=== PATIENT | female | born 1955 | race Caucasian/White ===

== ENCOUNTER 2017-02-02 11:34 | Day surgery (SDC) | payer OTHER ==
[~2017-02-02 11:34] MED LIST: Clindamycin Phosphate 900 MG in Dextrose 5% in Water 100 ML IV ONE; Iopamidol 612 MG/ML 50 ML SDV ONE; Lactated Ringers 1,000 ML IV SCH; Lidocaine 1%/Sod Bicarbonate in NS 8.4% 1 ML Syringe PRN; Midazolam 1 MG/ML 2 ML SDV ONE; Propofol 200 MG/20 ML SDV ONE; Rocuronium 50 MG/5 ML Vial ONE; Sodium Chloride 0.9% 10 ML Syringe FLUSH PRN; Sodium Chloride 0.9% 50 ML SDV ONE; fentaNYL 250 MCG/5 ML SDV ONE
[2017-02-02] MEDS ORDERED: diphenhydrAMINE 50 MG/ML SDV IVPUSH PRN (11:48)
[2017-02-02] MEDS ORDERED: fentaNYL 100 MCG/2 ML SDV IVPUSH PRN (11:48)
[2017-02-02] MEDS ORDERED: Ondansetron 4 MG/2 ML SDV IVPUSH PRN (11:48)
--- NOTE | 2017-02-02 11:52 | PCM.PREANE ---
Preanesthetic Assessment - Anesthesia/Transfusion/Family Hx Anesthesia History: Prior Anesthesia Without Reaction Family History of Anesthesia Reaction: No Transfusion History: No Prior Transfusion(s) Intubation History: Unknown - Review of Systems General: No Symptoms Pulmonary: No Symptoms Cardiovascular: No Symptoms Gastrointestinal: No symptoms Neurological: Headache (migraines ) Other: Reports: Thyroid Problems (hypothyroid on medication ) - Physical Assessment NPO Status Date: 02/02/17 NPO Status Time: 20:30 Pulse: 75 O2 Sat by Pulse Oximetry: 94 Respiratory Rate: 16 Blood Pressure: 124/74 Temperature: 36.2 C Height: 1.68 m Weight: 108.862 kg ASA Class: 3 Mental Status: Alert & Oriented x3 Airway Class: Mallampati = 1 Dentition: Reports: Normal Dentition Thyro-Mental Finger Breadths: 3 Mouth Opening Finger Breadths: 6 ROM/Head Extension: Full Lungs: Clear to auscultation, Normal respiratory effort Cardiovascular: Regular Rate, Regular Rhythm - Allergies Allergies/Adverse Reactions: Allergies Allergy/AdvReac Type Severity Reaction Status Date / Time Penicillins Allergy Cannot Verified 02/01/17 15:08 Remember - Blood Blood Available: No - Anesthesia Plan Pre-Op Medication Ordered: None - Acknowledgements Anesthesia Type Planned: General Anesthesia Pt an Appropriate Candidate for the Planned Anesthesia: Yes Alternatives and Risks of Anesthesia Discussed w Pt/Guardian: Yes Pt/Guardian Understands and Agrees with Anesthesia Plan: Yes PreAnesthesia Questionnaire Cardiovascular History: Reports: None, Other (See Below) (at [place] history of EGK within 6 months, with prologned [place] interval 0.238, will obtain record or order EKG) Respiratory History: Reports: None Gastrointestinal History: Reports: GERD, Other (See Below) Other Gastrointestinal History: LUQ pain, nausea/vomiting, rectal bleeding, post op nausea/vomiting Genitourinary History: Reports: None INSULATION HELPER History: Reports: None Musculoskeletal History: Reports: Arthritis, Other (See Below) Other Musculoskeletal History: R foot fracture Neurological History: Reports: Migraines Psychiatric History: Reports: Anxiety, Depression, Other (See Below) Other Psychiatric History: dissociative disorder, cognitive disorder, insomnia, depressive neurosis Endocrine/Metabolic History: Reports: Hypothyroidism Hematologic History: Reports: None Immunologic History: Reports: None Oncologic (Cancer) History: Reports: Basal Cell Carcinoma Dermatologic History: Reports: None - Past Surgical History Head Surgeries/Procedures: Reports: None HEENT Surgical History: Reports: Tonsillectomy GI Surgical History: Reports: Appendectomy, Colonoscopy, Other (See Below) Other GI Surgeries/Procedures: abdominoplasty Oncologic Surgical History: Reports: Biopsy of Breast - HOME MEDS Home Medications: Home Meds ARIPiprazole [Abilify] 10 mg PO DAILY 02/01/17 [History] Baclofen [Baclofen] 10 mg PO TID PRN 02/01/17 [History] Cetirizine [ZyrTEC] 10 mg PO DAILY 02/01/17 [History] Desvenlafaxine [Pristiq] 100 mg PO DAILY 02/01/17 [History] Dextroamphetamine/Amphetamine [Adderall 10 mg Tablet] 10 mg PO TID 02/01/17 [ History] FA/Lycopene/Lut/MV,Ca,Iron,Min [Centrum] 1 tab PO DAILY 02/01/17 [History] Fluticasone Propionate [Flonase] 1 spray NASBOTH DAILY 02/01/17 [History] Levothyroxine Sodium [Levothyroxine Sodium] 50 mcg PO DAILY 02/01/17 [History] Montelukast [Singulair] 10 mg PO DAILY 02/01/17 [History] Nabumetone [Nabumetone] 500 mg PO BID 02/01/17 [History] Omeprazole [Omeprazole] 40 mg PO DAILY 02/01/17 [History] Rosuvastatin [Crestor] 10 mg PO DAILY 02/01/17 [History] Timolol Maleate [Blocadren] 10 mg PO BID 02/01/17 [History] Tretinoin [Retin-A] 1 applic TOP ASDIRECTED 02/01/17 [History] ZOLMitriptan [Zomig] 2.5 mg PO DAILY PRN 02/01/17 [History] clonazePAM [Clonazepam] 0.5 mg PO BID 02/01/17 [History] traZODone HCl [Trazodone HCl] 100 mg PO BEDTIME 02/01/17 [History] - CURRENT (IN HOUSE) MEDS Current Meds: Current Medications Lactated Ringer's (Ringers, Lactated) 1,000 mls @ 125 mls/hr IV ASDIRECTED ANABELLE Stop: 02/02/17 23:00 Clindamycin Phosphate 900 mg/ (Dextrose/Water) 106 mls @ 212 mls/hr IV ONETIME ONE Stop: 02/02/17 11:49 Lidocaine/Sodium Bicarbonate (Buffered Lidocaine 1% In Ns 8.4%) 0.25 ml .XX ONETIME PRN PRN Reason: Prior to IV Start Stop: 02/02/17 18:00 Sodium Chloride (Saline Flush) 10 ml FLUSH ASDIRECTED PRN PRN Reason: Keep Vein Open Stop: 02/02/17 18:00 Discontinued Medications Bupivacaine HCl/Epinephrine Bitart (Marcaine 0.5%/Epinephrine 1:200,000) Confirm Administered Dose 50 ml .ROUTE .STK-MED ONE Stop: 02/02/17 11:33 Fentanyl (Sublimaze) Confirm Administered Dose 250 mcg .ROUTE .STK-MED ONE Stop: 02/02/17 11:17 Iopamidol (Isovue-300 (61%)) Confirm Administered Dose 50 ml .ROUTE .STK-MED ONE Stop: 02/02/17 11:33 Lidocaine/Epinephrine (Xylocaine 1% With Epinephrine 1:100,000) Confirm Administered Dose 20 ml .ROUTE .STK-MED ONE Stop: 02/02/17 11:33 Midazolam HCl (Versed 1 Mg/Ml) Confirm Administered Dose 2 mg .ROUTE .STK-MED ONE Stop: 02/02/17 11:14 Midazolam HCl (Versed 1 Mg/Ml) Confirm Administered Dose 2 mg .ROUTE .STK-MED ONE Stop: 02/02/17 11:17 Propofol (Diprivan 20 Ml) Confirm Administered Dose 200 mg .ROUTE .STK-MED ONE Stop: 02/02/17 11:12 Rocuronium Dubois (Zemuron) Confirm Administered Dose 50 mg .ROUTE .STK-MED ONE Stop: 02/02/17 11:24 Sodium Chloride (Normal Saline) Confirm Administered Dose 100 ml .ROUTE .STK- MED ONE Stop: 02/02/17 11:33
[2017-02-02] MEDS ORDERED: HYDROmorphone 0.5 MG/0.5 ML Syringe IVPUSH PRN (12:15)
[2017-02-02] MEDS: Bupivacaine 0.5%/EPINEPHrine 1:200,000 50 ML MDV ONE ×2 (12:39→12:51)
[2017-02-02] MEDS: Lidocaine 1% with EPINEPHrine 1:100,000 20 ML MDV ONE ×2 (12:39→12:52)
[2017-02-02] MEDS ORDERED: Ketorolac 30 MG/ML SDV ONE ×2 (12:44→14:24)
[2017-02-02] MEDS ORDERED: Dexamethasone 4 MG/ML 5 ML MDV ONE (12:44)
[2017-02-02] MEDS ORDERED: Ondansetron 4 MG/2 ML SDV ONE (12:44)
[2017-02-02] MEDS ORDERED: Phenylephrine/Normal Saline 100 MCG/ML 10 ML Syringe ONE (12:47)
[2017-02-02] MEDS ORDERED: ePHEDrine/Normal Saline 25 MG/5 ML Syringe ONE (12:49)
[2017-02-02] MEDS ORDERED: Ketamine 500 mg/10 ML MDV ONE (13:31)
[2017-02-02] MEDS ORDERED: fentaNYL 100 MCG/2 ML SDV ONE (13:56)
[2017-02-02] MEDS ORDERED: Neostigmine Methylsulfate 1 MG/ML 5 ML Syringe ONE (14:11)
--- NOTE | 2017-02-02 14:23 | PCM.OPNOTE ---
- General Post-Op/Procedure Note Date of Surgery/Procedure: 02/02/17 Operative Procedure(s): Laparoscopic cholecystectomy with incidental primary umbilical hernia repair Pre Op Diagnosis: Symptomatic cholelithiasis Post-Op Diagnosis: Cholelithiasis with acute cholecystitis Anesthesia Technique: General ET tube, Local (40 mL) Primary Surgeon: Moraima Helm Anesthesia Provider: Aubrie Mari Pathology: Gallbladder Fluid Replacement, Intraop: 1,300 (mL crystalloid) EBL in mLs: 30 Complications: None Condition: Good Free Text/Narrative:: INDICATION FOR PROCEDURE: The patient is a 61-year-old woman who had been referred to me by Dr. Miya Hendricks for evaluation for symptomatic cholelithiasis. She had multiple gallstones on ultrasound present within the gallbladder. She had also had a history of elevated alkaline phosphatase and a very mildly mildly elevated direct bilirubin of 0.5. I discussed with the patient performing a laparoscopic cholecystectomy with interoperative cholangiogram as well as incidental umbilical hernia repair and associated risks of the procedure. The patient found these risks acceptable and agreed to proceed. DESCRIPTION OF PROCEDURE: The patient was taken to the operating room and placed in the supine position. Sequential compressive devices were placed on the bilateral lower extremities. After induction of general endotracheal anesthesia, the abdomen was prepped and draped in the usual sterile fashion. Preoperative antibiotics had been administered as per protocol. A supraumbilical curvilinear incision was made using a scalpel. The patient had a prior abdominoplasty and the previous tyrell-umbilical scar was utilized to enter the abdomen. This was deepened down through the subcutaneous tissues to the anterior abdominal wall fascia which was elevated and incised. At first, the patient's umbilical hernia was not immediately apparent. The abdomen was bluntly entered using a hemostat. An 0 Vicryl stay suture was placed. A Barrett cannula was introduced into the abdomen and the abdomen was insufflated to 15 mm of mercury. The abdomen was then surveyed. The liver did appear somewhat fatty but was otherwise unremarkable. The visualized portions of the stomach, small intestine and large intestine were unremarkable. The patient was placed in steep Trendelenburg, I was not able to visualize her reproductive organs. The pelvis otherwise appeared unremarkable. There was no evidence of inguinal hernia. Attention was turned then to the patient's gallbladder. The dome of the gallbladder was unremarkable, however upon retracting the gallbladder cephalad, dense scar tissue was noted on the body. Two additional 5 mm trocars had been placed under direct visualization after first injecting local anesthetic, one in the epigastrium and one in the right subcostal margin. The gallbladder fundus was elevated, and the triangle of Calot was dissected. I did place a fundal retraction suture of 0 silk to assist in visualization. The critical view of safety was obtained however this was quite difficult due to scarring and inflammation around the infundibulum. The appearance of the gallbladder was consistent with acute cholecystitis. The cystic artery was coursing anterior to the cystic duct. It was triply clipped and transected to allow better visualization of the cystic duct. The cystic duct was extensively dilated and it was seen going into the common bile duct. The common bile duct did not appear dilated. There were numerous small stones within the cystic duct. I milked as many of the stones up into the infundibulum of the gallbladder as possible, however it became obvious that there would be no way to transect the duct and apply clips. I did attempt to obtain a cholangiogram using utilizing a Mcghee cholangiocatheter, however due to the multiple small stones I was not able to accomplish this. I did not want to perform a ductotomy and spill the large amount of small stones into the abdomen and the cystic duct itself was quite short and I did not have enough room to use another securing device. I ultimately decided to transect the cystic duct using a vascular load stapler. This was completed and there was a crushed gallstone present in staple line. An additional Endoloop 2-0 PDS was used placed to further secure the cystic duct stump. This was for additional security only, there was no obvious bile leak from the staple line. The gallbladder was then removed off of the liver bed using electrocautery and placed into an EndoCatch bag. The abdomen was irrigated and suctioned until the effluent was clear. The liver bed was reinspected for hemostasis. The 5 mm trocars were removed with no evidence of bleeding. The Barrett cannula and gallbladder within the EndoCatch bag were then removed and the abdomen desufflated. The patient's fascial incision was closed using an 0 Vicryl [id number] suture. Upon closing the fascial incision, I was finally able to identify the patient's umbilical hernia. The umbilical skin was taken off of the umbilical stalk in the 1 cm hernia defect was reapproximated using 2 interrupted figure-of -eight 0 Vicryl sutures. The umbilical skin was then tacked down to the fascia using an 0 Vicryl suture. Additional local anesthetic was injected tyrell- incisionally. The incisions were then closed using subcuticular 4-0 Monocryl suture. Dermabond was placed over the patient's skin incisions. The patient was then awakened from anesthesia, extubated, and transferred to the recovery room in stable condition having tolerated the procedure well. Sponge and instrument counts were reported as correct at the end of the case. POSTOPERATIVE PLAN: I discussed my intraoperative findings with the patient's after the procedure. I was concerned that she could have stones present within her ducts due to the dilated appearance of the cystic duct as well as the numerous small stones are present within her gallbladder and the cystic duct itself, including the staple line. I range for the patient to have an MRCP today after she is awakened from anesthesia. Based on the findings from the MRCP, we will make appropriate arrangements. Prescriptions for Percocet 5/325mg were given in addition to Zofran ODT and Senna-S. They will follow up in 2 weeks for a post- operative check. They are not lift over 20 pounds for the next 4 weeks. They are to call the office with any questions or concerns. ADDENDUM: I personally reviewed the patient's MRCP images prior to her discharge. She had no evidence of retained stones. Her was updated.
[2017-02-02] MEDS ORDERED: Flumazenil 0.1 MG/ML 5 ML MDV ONE (14:47)
--- NOTE | 2017-02-02 14:55 | PCM.POSTAN ---
POST ANESTHESIA ASSESSMENT - MENTAL STATUS Mental Status: other (drowsy) - VITAL SIGNS Pulse Rate: 73 SaO2: 95 Resp Rate: 13 Blood Pressure: 150/84 Temperature: 96.5 C - RESPIRATORY Respiratory Status: respiratory rate WNL, airway patent, O2 saturation stable, supplemental oxygen - CARDIOVASCULAR CV Status: pulse rate WNL, elevated blood pressure - GASTROINTESTINAL GI Status: no symptoms - PAIN Pain Score: 0 - POST OP HYDRATION Hydration Status: adequate & stable
[2017-02-02] MEDS ORDERED: Acetaminophen/oxyCODONE 325-5 MG Tab PO ONE (15:45)
--- NOTE | 2017-02-02 16:44 | MR ---
MRI abdomen Technique: Various sequences were obtained to the upper abdomen. MR cholangiogram study was also performed. Comparison: No previous abdominal imaging is available. Findings: Common hepatic and common bile duct measure within normal limits. Common bile duct measures about 6 mm in crown hepatic duct measures about 4 mm. No filling defects are seen to indicate retained stone. Intrahepatic ducts that are seen show no filling defects to indicate retained stone. Gallbladder not seen presumably due to previous cholecystectomy. Please correlate. Noncontrast appearance of the liver, spleen and pancreas are within normal limits. Kidneys show no hydronephrosis. No discrete mass is seen within the kidneys. Aorta shows no aneurysmal dilatation. No retroperitoneal adenopathy is seen. Impression: 1. Normal size of the CBD and CHD. No filling defects are seen within the visualized biliary tree to indicate retained stone. Gallbladder not seen presumably from previous cholecystectomy. 2. Other portions of the noncontrast MR abdomen exam appear within normal limits. Diagnostic code #1
[2017-02-02 17:00] VITALS: BP 117/65
--- NOTE | 2017-02-02 19:23 | PCM48HPAN ---
Post Anesthesia Note - EVALUATION WITHIN 48HRS OF ANESTHETIC Vital Signs in Normal Range: Yes Patient Participated in Evaluation: Yes Respiratory Function Stable: Yes Airway Patent: Yes Cardiovascular Function Stable: Yes Hydration Status Stable: Yes Pain Control Satisfactory: Yes Nausea and Vomiting Control Satisfactory: Yes Mental Status Recovered: Yes
== END 2017-02-02 17:00 | disposition home or self-care (01) ==
LOC: JD.SDS 11:34
PROVIDERS: ATTEND Surgery
PROC: 0FT44ZZ Resection of Gallbladder, Percutaneous Endoscopic Approach (ICD-10-PCS; principal; 2017-02-02)
PROC: 0WQF0ZZ Repair Abdominal Wall, Open Approach (ICD-10-PCS; 2017-02-02)
DX: K80.10 Calculus of gallbladder with chronic cholecystitis without obstruction (principal); K42.9 Umbilical hernia without obstruction or gangrene; E03.8 Other specified hypothyroidism; C44.91 Basal cell carcinoma of skin, unspecified; M19.90 Unspecified osteoarthritis, unspecified site; E78.5 Hyperlipidemia, unspecified
CPT/HCPCS: 47562; 49585; 74181; 88304; A9270; J1100; J1885; J2250; J2405; J2710; J3010; J7050; J7120; 00790; J2704; J3490; Q9967

== ENCOUNTER 2020-06-01 06:29 | Day surgery (SDC) | payer OTHER ==
[~2020-06-01 06:29] MED LIST changes: -Clindamycin Phosphate 900 MG in Dextrose 5% in Water 100 ML IV ONE; -Iopamidol 612 MG/ML 50 ML SDV ONE; +Lidocaine 1%/Sod Bicarbonate in NS 8.4% 1 ML Syringe IDERM PRN; -Lidocaine 1%/Sod Bicarbonate in NS 8.4% 1 ML Syringe PRN; -Midazolam 1 MG/ML 2 ML SDV ONE; -Propofol 200 MG/20 ML SDV ONE; -Rocuronium 50 MG/5 ML Vial ONE; -Sodium Chloride 0.9% 50 ML SDV ONE; -fentaNYL 250 MCG/5 ML SDV ONE
[2020-06-01] MEDS ORDERED: Lidocaine 1% 4 ML ONE (07:22)
[2020-06-01] MEDS ORDERED: Propofol 200 MG/20 ML SDV ONE ×2 (07:22→08:09)
[2020-06-01] MEDS ORDERED: fentaNYL 100 MCG/2 ML SDV ONE (07:23)
--- NOTE | 2020-06-01 07:38 | PCM.PREANE ---
Preanesthetic Assessment - Anesthesia/Transfusion/Family Hx Anesthesia History: Prior Anesthesia Without Reaction Family History of Anesthesia Reaction: No Transfusion History: No Prior Transfusion(s) Intubation History: Unknown - Review of Systems General: No Symptoms Pulmonary: No Symptoms (COPD-asthma), Cough Cardiovascular: No Symptoms (elevated cholesterol), Dyspnea on Exertion Gastrointestinal: No Symptoms (GERD/gastritis-controlled) Neurological: No Symptoms, Dizziness (syncope noted after surgeries in the past.), Headache (migraines) Other: Reports: Easy Bruising, Liver Problems (fatty liver noted), Thyroid Problems (Hypothyroid), Sinus Problem (seasonal allergies), Depression, Anxiety - Physical Assessment NPO Status Date: 05/30/20 NPO Status Time: 18:00 Vital Signs: Last Vital Signs Temp 36.1 C 06/01/20 07:00 Pulse 79 06/01/20 07:00 Resp 20 06/01/20 07:00 BP 132/60 06/01/20 07:00 Pulse Ox 95 06/01/20 07:00 Height: 1.68 m Weight: 114 kg ASA Class: 3 Mental Status: Alert & Oriented x3 Airway Class: Mallampati = 2 Dentition: Reports: Normal Dentition, Implants (cap noted upper front), Caries Thyro-Mental Finger Breadths: 3 Mouth Opening Finger Breadths: 3 ROM/Head Extension: Full Lungs: Clear to Auscultation, Normal Respiratory Effort Cardiovascular: Regular Rate, Regular Rhythm, No Murmurs - Lab Values: Laboratory Last Values SARS-CoV-2 (PCR) Not detected (NOT DETECT) 05/28/20 09:51 - Allergies Allergies/Adverse Reactions: Allergies Allergy/AdvReac Type Severity Reaction Status Date / Time Penicillins Allergy Rash Verified 02/02/17 12:21 - Anesthesia Plan Pre-Op Medication Ordered: Beta Soraya Beta Soraya: Propranolol Med Last Dose Date: 06/01/20 Med Last Dose Time: 06:00 - Acknowledgements Anesthesia Type Planned: MAC Pt an Appropriate Candidate for the Planned Anesthesia: Yes Alternatives and Risks of Anesthesia Discussed w Pt/Guardian: Yes Pt/Guardian Understands and Agrees with Anesthesia Plan: Yes PreAnesthesia Questionnaire Cardiovascular History: Reports: None, Other (See Below) (at [place] history of EGK within 6 months, with prologned [place] interval 0.238, will obtain record or order EKG) Respiratory History: Reports: None Gastrointestinal History: Reports: GERD, Other (See Below) Other Gastrointestinal History: LUQ pain, nausea/vomiting, rectal bleeding, post op nausea/vomiting Genitourinary History: Reports: None 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 Musculoskeletal History: Reports: Arthritis, Other (See Below) Other Musculoskeletal History: R foot fracture Neurological History: Reports: Migraines Psychiatric History: Reports: Anxiety, Depression, Other (See Below) Other Psychiatric History: dissociative disorder, cognitive disorder, insomnia, depressive neurosis Endocrine/Metabolic History: Reports: Hypothyroidism Hematologic History: Reports: None Immunologic History: Reports: None Oncologic (Cancer) History: Reports: Basal Cell Carcinoma Dermatologic History: Reports: None - Past Surgical History Head Surgeries/Procedures: Reports: None HEENT Surgical History: Reports: Tonsillectomy GI Surgical History: Reports: Appendectomy, Colonoscopy, Other (See Below) Other GI Surgeries/Procedures: abdominoplasty Oncologic Surgical History: Reports: Biopsy of Breast - HOME MEDS Home Medications: Home Meds ARIPiprazole [Abilify] 10 mg PO DAILY 02/01/17 [History] Baclofen 10 mg PO TID PRN 02/01/17 [History] Cetirizine [ZyrTEC] 10 mg PO DAILY 02/01/17 [History] Desvenlafaxine [Pristiq] 100 mg PO DAILY 02/01/17 [History] Dextroamphetamine/Amphetamine [Adderall 10 mg Tablet] 10 mg PO TID 02/01/17 [History] FA/Lycopene/Lut/MV,Ca,Iron,Min [Centrum] 1 tab PO DAILY 02/01/17 [History] Fluticasone Propionate [Flonase] 1 spray NASBOTH DAILY 02/01/17 [History] Levothyroxine Sodium 50 mcg PO DAILY 02/01/17 [History] Montelukast [Singulair] 10 mg PO DAILY 02/01/17 [History] Nabumetone 500 mg PO BID 02/01/17 [History] Omeprazole 40 mg PO DAILY 02/01/17 [History] Rosuvastatin [Crestor] 10 mg PO DAILY 02/01/17 [History] Tretinoin [Retin-A] 1 applic TOP ASDIRECTED 02/01/17 [History] ZOLMitriptan [Zomig] 2.5 mg PO DAILY PRN 02/01/17 [History] clonazePAM [Clonazepam] 0.5 mg PO BID 02/01/17 [History] timoloL maleate [Blocadren] 10 mg PO BID 02/01/17 [History] traZODone HCl [Trazodone HCl] 100 mg PO BEDTIME 02/01/17 [History] Acetaminophen/oxyCODONE [Percocet 325-5 MG] 1 - 2 tab PO Q4H PRN #30 tablet 02/02/17 [Rx] Ondansetron [Zofran ODT] 4 mg PO Q6H PRN #5 tab.dis 02/02/17 [Rx] Sennosides/Docusate Sodium [Senna-S] 2 each PO BID #20 tablet 02/02/17 [Rx] - CURRENT (IN HOUSE) MEDS Current Meds: Current Medications Lactated Ringer's (Ringers, Lactated) 1,000 mls @ 125 mls/hr IV ASDIRECTED ANABELLE Stop: 06/01/20 23:00 Last Admin: 06/01/20 07:10 Dose: 125 mls/hr Documented by: Lidocaine/Sodium Bicarbonate (Buffered Lidocaine 1% In Ns 8.4%) 0.25 ml IDERM ONETIME PRN PRN Reason: Prior to IV Start Stop: 06/01/20 18:00 Sodium Chloride (Saline Flush) 10 ml FLUSH ASDIRECTED PRN PRN Reason: Keep Vein Open Stop: 06/01/20 18:00 Discontinued Medications Fentanyl (Sublimaze) Confirm Administered Dose 100 mcg .ROUTE .STK-MED ONE Stop: 06/01/20 07:24 Lidocaine HCl (Xylocaine-Mpf 1%) Confirm Administered Dose 4 mls @ as directed .ROUTE .STK-MED ONE Stop: 06/01/20 07:23 Propofol (Diprivan 20 Ml) Confirm Administered Dose 200 mg .ROUTE .STK-MED ONE Stop: 06/01/20 07:23
[2020-06-01] MEDS ORDERED: Ondansetron 4 MG/2 ML SDV IVPUSH PRN (08:05)
--- NOTE | 2020-06-01 08:38 | PCM.OPNOTE ---
- General Post-Op/Procedure Note Date of Surgery/Procedure: 06/01/20 Operative Procedure(s): Colonoscopy with cold forceps biopsy Findings: 2 mm transverse polyp Pre Op Diagnosis: Age related colon cancer screening Post-Op Diagnosis: 2 mm transverse colon polyp Anesthesia Technique: MAC Primary Surgeon: Sagar Bradshaw Anesthesia Provider: Mounika Jones EBL in mLs: 5 Complications: None Condition: Good Free Text/Narrative:: After the patient gave verbal and written consent she was placed on blood pressure and pulse ox monitoring. She was given iv sedation which she tolerated well. The olympus colonoscope was inserted per rectum and advanced to the cecum without difficulty. The ileocecal valve and appendiceal orfice were imaged documenting cecal intubation. The scope was slowly withdrawn. The prep was good, the views were good and the mucosal surfaces were carefully examined. A 2 mm transverse polyp was noted and removed with cold forceps biopsy. There was good hemostasis. The scope was retroflexed in the rectum. The patient left the endoscopy suite in good condition. No complications.
--- NOTE | 2020-06-01 08:39 | PCM48HPAN ---
Post Anesthesia Note - EVALUATION WITHIN 48HRS OF ANESTHETIC Vital Signs in Normal Range: Yes Patient Participated in Evaluation: Yes Respiratory Function Stable: Yes Airway Patent: Yes Cardiovascular Function Stable: Yes Hydration Status Stable: Yes Pain Control Satisfactory: Yes Nausea and Vomiting Control Satisfactory: Yes Mental Status Recovered: Yes Vital Signs: Last Vital Signs Temp 36.1 C 06/01/20 07:00 Pulse 79 06/01/20 07:00 Resp 20 06/01/20 07:00 BP 132/60 06/01/20 07:00 Pulse Ox 95 06/01/20 07:00
[2020-06-01 08:55] VITALS: PULSE 65
[2020-06-01 09:15] VITALS: BP 148/74
== END 2020-06-01 09:14 | disposition home or self-care (01) ==
LOC: JD.SDS 06:29
PROVIDERS: ATTEND Family Medicine
DX: Z12.11 Encounter for screening for malignant neoplasm of colon (principal); D12.3 Benign neoplasm of transverse colon; Z01.812 Encounter for preprocedural laboratory examination; Z20.828 Contact with and (suspected) exposure to other viral communicable diseases; F41.8 Other specified anxiety disorders; E78.00 Pure hypercholesterolemia, unspecified; Z79.899 Other long term (current) drug therapy; Z88.0 Allergy status to penicillin; E78.5 Hyperlipidemia, unspecified; G47.00 Insomnia, unspecified; Z90.49 Acquired absence of other specified parts of digestive tract; Z98.890 Other specified postprocedural states
CPT/HCPCS: 45380; 87635; J2001; J2704; J3010; J7120; 00812; U0002

== ENCOUNTER 2020-07-29 07:28 | Emergency (ER) | payer OTHER ==
[2020-07-29] MEDS ORDERED: Sodium Chloride 0.9% 10 ML Syringe FLUSH PRN (08:11)
[2020-07-29] MEDS ORDERED: Dexamethasone 4 MG/ML SDV IVPUSH ONE (08:12)
[2020-07-29 08:13] VITALS: BP 131/106; PULSE 84
--- NOTE | 2020-07-29 08:43 | EDM.PDOC ---
ED HPI GENERAL MEDICAL PROBLEM - General Chief Complaint: Respiratory Problem Stated Complaint: SOB/HAD COVID TEST YESTERDAY Time Seen by Provider: 07/29/20 07:54 Source of Information: Reports: Patient History Limitations: Reports: No Limitations - History of Present Illness INITIAL COMMENTS - FREE TEXT/NARRATIVE: The patient presents with a cough, fever, chills, shortness of breath and diarrhea. This has been going on for a few days. She also lost her sense of taste and smell. She was tested for COVID 19 yesterday but she was more short of breath this morning so she came in to be evaluated. She has a history of asthma. She does not smoke. She has no history of heart disease, hypertension or hypercholesterolemia. Onset: Gradual Duration: Day(s): Severity: Moderate Improves with: Reports: None Worsens with: Reports: None Associated Symptoms: Reports: Cough, Fever/Chills, Shortness of Breath. 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: Acetaminophen, Breathing Treatments - Related Data Allergies Allergy/AdvReac Type Severity Reaction Status Date / Time Penicillins Allergy Rash Verified 07/29/20 07:47 Home Meds: Home Meds ARIPiprazole [Abilify] 10 mg PO DAILY 02/01/17 [History] Baclofen 10 mg PO TID PRN 02/01/17 [History] Cetirizine [ZyrTEC] 10 mg PO DAILY 02/01/17 [History] Desvenlafaxine [Pristiq] 100 mg PO DAILY 02/01/17 [History] FA/Lycopene/Lut/MV,Ca,Iron,Min [Centrum] 1 tab PO DAILY 02/01/17 [History] Levothyroxine Sodium 50 mcg PO DAILY 02/01/17 [History] Montelukast [Singulair] 10 mg PO DAILY 02/01/17 [History] Nabumetone 500 mg PO BID 02/01/17 [History] Omeprazole 40 mg PO DAILY 02/01/17 [History] Rosuvastatin [Crestor] 10 mg PO DAILY 02/01/17 [History] Tretinoin [Retin-A] 1 applic TOP ASDIRECTED 02/01/17 [History] ZOLMitriptan [Zomig] 2.5 mg PO DAILY PRN 02/01/17 [History] clonazePAM [Clonazepam] 0.5 mg PO BID 02/01/17 [History] timoloL maleate [Blocadren] 10 mg PO BID 02/01/17 [History] traZODone HCl [Trazodone HCl] 100 mg PO BEDTIME 02/01/17 [History] Ondansetron [Zofran ODT] 4 mg PO Q6H PRN #5 tab.dis 02/02/17 [Rx] Sennosides/Docusate Sodium [Senna-S] 2 each PO BID #20 tablet 02/02/17 [Rx] Albuterol [Ventolin HFA] 2 inh PO QID PRN 06/01/20 [History] Ascorbic Acid [Vitamin C] 500 mg PO DAILY 06/01/20 [History] Celecoxib [CeleBREX] 200 mg PO DAILY 06/01/20 [History] Cholecalciferol (Vitamin D3) [Vitamin D3] 2,000 unit PO DAILY 06/01/20 [History] Glucosamine/D3/Boswellia Stephanie [Osteo Bi-Flex Tablet] 1 each PO DAILY 06/01/20 [History] Lisdexamfetamine [Vyvanse] 40 mg PO DAILY 06/01/20 [History] Lubiprostone [Amitiza] 24 mcg PO DAILY 06/01/20 [History] Metoclopramide [Reglan] 10 mg PO DAILY 06/01/20 [History] Multivitamin [Multivitamins] 1 each PO DAILY 06/01/20 [History] Naproxen Sodium [Aleve] 220 mg PO DAILY PRN 06/01/20 [History] Polyethylene Glycol [Polyox Wsr-301] 30 ml PO DAILY PRN 06/01/20 [History] Propranolol [Inderal] 40 mg PO DAILY 06/01/20 [History] SUMAtriptan [Imitrex] 25 mg PO DAILY PRN 06/01/20 [History] bisacodyL [Bisacodyl] 5 mg PO DAILY PRN 06/01/20 [History] Past Medical History Cardiovascular History: Reports: None, High Cholesterol, Hypertension, Other (See Below) Respiratory History: Reports: Asthma, SOB Gastrointestinal History: Reports: GERD, Other (See Below) Other Gastrointestinal History: LUQ pain, nausea/vomiting, rectal bleeding, post op nausea/vomiting Genitourinary History: Reports: None PLUCK TRIMMER History: 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: 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 Musculoskeletal History: Reports: Arthritis, Other (See Below) Other Musculoskeletal History: R foot fracture Neurological History: Reports: Migraines Psychiatric History: Reports: Anxiety, Depression, Other (See Below) Other Psychiatric History: dissociative disorder, cognitive disorder, insomnia, depressive neurosis Endocrine/Metabolic History: Reports: Hypothyroidism Hematologic History: Reports: None Immunologic History: Reports: None Oncologic (Cancer) History: Reports: Basal Cell Carcinoma Dermatologic History: Reports: None - Past Surgical History Head Surgeries/Procedures: Reports: None HEENT Surgical History: Reports: Tonsillectomy GI Surgical History: Reports: Appendectomy, Colonoscopy, Other (See Below) Other GI Surgeries/Procedures: abdominoplasty Oncologic Surgical History: Reports: Biopsy of Breast Social & Family History - Tobacco Use Tobacco Use Status *Q: Never Tobacco User Second Hand Smoke Exposure: No - Caffeine Use Caffeine Use: Reports: None - Recreational Drug Use Recreational Drug Use: No ED ROS GENERAL - Review of Systems Review Of Systems: See Below Constitutional: Reports: Fever, Chills, Malaise, Weakness, Fatigue HEENT: Reports: No Symptoms Respiratory: Reports: Shortness of Breath, Cough Cardiovascular: Reports: No Symptoms Endocrine: Reports: No Symptoms GI/Abdominal: Reports: No Symptoms : Reports: No Symptoms Musculoskeletal: Reports: No Symptoms ED EXAM, GENERAL - Physical Exam Exam: See Below Exam Limited By: No Limitations General Appearance: Alert, No Apparent Distress Ears: Normal External Exam Nose: Normal Inspection Head: Atraumatic, Normocephalic Neck: Normal Inspection Respiratory/Chest: No Respiratory Distress, Lungs Clear, Normal Breath Sounds Cardiovascular: Regular Rate, Rhythm, No Edema, No Murmur GI/Abdominal: Soft, Non-Tender, No Organomegaly, No Mass Back Exam: Normal Inspection Extremities: Normal Inspection Course - Vital Signs Last Recorded V/S: Last Vital Signs Temp 96.0 F L 07/29/20 08:08 Pulse 84 07/29/20 08:08 Resp 25 H 07/29/20 08:08 BP 131/106 H 07/29/20 08:08 Pulse Ox 94 L 07/29/20 08:14 - Orders/Labs/Meds Orders: Active Orders 24 hr Category Date Time Status Cardiac Monitoring [RC] . DIRECTED Care 07/29/20 08:11 Active Oxygen Therapy [RC] PRN Care 07/29/20 08:11 Active Peripheral IV Care [RC] . DIRECTED Care 07/29/20 08:11 Active Chest 1V Frontal [CR] Stat Exams 07/29/20 08:11 Taken CULTURE BLOOD [BC] Stat Lab 07/29/20 08:45 Received CULTURE BLOOD [BC] Stat Lab 07/29/20 09:05 Received HEPATIC FUNCTION PANEL,HFP [CHEM] DAILY Lab 07/30/20 11:30 Ordered HEPATIC FUNCTION PANEL,HFP [CHEM] DAILY Lab 07/31/20 11:30 Ordered HEPATIC FUNCTION PANEL,HFP [CHEM] DAILY Lab 08/01/20 11:30 Ordered HEPATIC FUNCTION PANEL,HFP [CHEM] DAILY Lab 08/02/20 11:30 Ordered HEPATIC FUNCTION PANEL,HFP [CHEM] Stat Lab 07/29/20 11:22 Ordered Sodium Chloride 0.9% [Saline Flush] Med 07/29/20 08:11 Active 10 ml FLUSH ASDIRECTED PRN Blood Culture x2 Reflex Set [OM.PC] Stat Oth 07/29/20 08:12 Ordered Peripheral IV Insertion Adult [OM.PC] Stat Oth 07/29/20 08:11 Ordered Medication Orders Sodium Chloride (Saline Flush) 10 ml FLUSH ASDIRECTED PRN PRN Reason: Keep Vein Open Last Admin: 07/29/20 09:20 Dose: 10 ml Documented by: DILCIA Labs: Laboratory Tests 07/29/20 07/29/20 07/29/20 Range/Units 08:45 08:45 08:45 WBC 5.99 (3.98-10.04) K/mm3 RBC 4.84 (3.98-5.22) M/mm3 Hgb 13.3 (11.2-15.7) gm/dl Hct 42.5 (34.1-44.9) % MCV 87.8 (79.4-94.8) fl MCH 27.5 (25.6-32.2) pg MCHC 31.3 L (32.2-35.5) g/dl RDW Std Deviation 46.0 (36.4-46.3) fL Plt Count 220 (182-369) K/mm3 MPV 9.2 L (9.4-12.3) fl Neut % (Auto) 73.1 H (34.0-71.1) % Lymph % (Auto) 18.2 L (19.3-51.7) % Ogle % (Auto) 8.3 (4.7-12.5) % Eos % (Auto) 0.2 L (0.7-5.8) Baso % (Auto) 0.2 (0.1-1.2) % Neut # (Auto) 4.38 (1.56-6.13) K/mm3 Lymph # (Auto) 1.09 L (1.18-3.74) K/mm3 Ogle # (Auto) 0.50 H (0.24-0.36) K/mm3 Eos # (Auto) 0.01 L (0.04-0.36) K/mm3 Baso # (Auto) 0.01 (0.01-0.08) K/mm3 D-Dimer, Quantitative 0.48 (0.19-0.50) mg/L Sodium 138 (136-145) mEq/L Potassium 3.8 (3.5-5.1) mEq/L Chloride 101 (98-107) mEq/L Carbon Dioxide 28 (21-32) mEq/L Anion Gap 12.8 (5-15) BUN 9 (7-18) mg/dL Creatinine 0.8 (0.55-1.02) mg/dL Est Cr Clr Drug Dosing 67.38 mL/min Estimated GFR (MDRD) > 60 (>60) mL/min BUN/Creatinine Ratio 11.3 L (14-18) Glucose 97 (80-115) mg/dL Lactic Acid (0.4-2.0) mmol/L Calcium 9.1 (8.5-10.1) mg/dL Ferritin (8-252) ng/ml Total Bilirubin 0.3 (0.2-1.0) mg/dL AST 31 (15-37) U/L ALT 75 H (14-59) U/L Alkaline Phosphatase 179 H (46-116) U/L Lactate Dehydrogenase 232 (81-234) U/L C-Reactive Protein 3.4 H* (<1.0) mg/dL Total Protein 7.8 (6.4-8.2) g/dl Albumin 3.9 (3.4-5.0) g/dl Globulin 3.9 gm/dL Albumin/Globulin Ratio 1.0 (1-2) Influenza Type A RNA (NEGATIVE) Influenza Type B RNA (NEGATIVE) SARS-CoV-2 RNA (KEVIN) (NEGATIVE) 07/29/20 07/29/20 07/29/20 Range/Units 08:45 08:45 09:40 WBC (3.98-10.04) K/mm3 RBC (3.98-5.22) M/mm3 Hgb (11.2-15.7) gm/dl Hct (34.1-44.9) % MCV (79.4-94.8) fl MCH (25.6-32.2) pg MCHC (32.2-35.5) g/dl RDW Std Deviation (36.4-46.3) fL Plt Count (182-369) K/mm3 MPV (9.4-12.3) fl Neut % (Auto) (34.0-71.1) % Lymph % (Auto) (19.3-51.7) % Ogle % (Auto) (4.7-12.5) % Eos % (Auto) (0.7-5.8) Baso % (Auto) (0.1-1.2) % Neut # (Auto) (1.56-6.13) K/mm3 Lymph # (Auto) (1.18-3.74) K/mm3 Ogle # (Auto) (0.24-0.36) K/mm3 Eos # (Auto) (0.04-0.36) K/mm3 Baso # (Auto) (0.01-0.08) K/mm3 D-Dimer, Quantitative (0.19-0.50) mg/L Sodium (136-145) mEq/L Potassium (3.5-5.1) mEq/L Chloride (98-107) mEq/L Carbon Dioxide (21-32) mEq/L Anion Gap (5-15) BUN (7-18) mg/dL Creatinine (0.55-1.02) mg/dL Est Cr Clr Drug Dosing mL/min Estimated GFR (MDRD) (>60) mL/min BUN/Creatinine Ratio (14-18) Glucose (80-115) mg/dL Lactic Acid 0.7 (0.4-2.0) mmol/L Calcium (8.5-10.1) mg/dL Ferritin 96 (8-252) ng/ml Total Bilirubin (0.2-1.0) mg/dL AST (15-37) U/L ALT (14-59) U/L Alkaline Phosphatase (46-116) U/L Lactate Dehydrogenase (81-234) U/L C-Reactive Protein (<1.0) mg/dL Total Protein (6.4-8.2) g/dl Albumin (3.4-5.0) g/dl Globulin gm/dL Albumin/Globulin Ratio (1-2) Influenza Type A RNA Negative (NEGATIVE) Influenza Type B RNA Negative (NEGATIVE) SARS-CoV-2 RNA (KEVIN) Positive H (NEGATIVE) Meds: Medications Generic Name Dose Route Start Last Admin Trade Name Freq PRN Reason Stop Dose Admin Sodium Chloride 10 ml 07/29/20 08:11 07/29/20 09:20 Saline Flush FLUSH 10 ml ASDIRECTED PRN Administration Keep Vein Open Discontinued Medications Generic Name Dose Route Start Last Admin Trade Name Freq PRN Reason Stop Dose Admin Dexamethasone 6 mg 07/29/20 08:12 07/29/20 08:45 Decadron IVPUSH 07/29/20 08:13 6 mg ONETIME ONE Administration Remdesivir 200 mg/ Sodium 250 mls @ 250 mls/hr 07/29/20 11:22 Chloride IV 07/29/20 11:23 ONETIME ONE - Re-Assessments/Exams Free Text/Narrative Re-Assessment/Exam: 07/29/20 08:43 I ordered oxygen, IV saline lock, CXR, labs, lactic acid, COVID 19 and influenza. 07/29/20 11:23 Her CXR shows a left lateral infiltrate. Her CBC was negative. Her D-dimer was negative. Her CRP was elevated at 3.4. Her Alk phos was 179. Her ALT was elevated at 75. Her influenza is negative. Her COVID 19 is positive. I have ordered remdesiver 200mg IV. She needs to be admitted. We have no beds here. I called [facility] in [place] and talked with Dr Zamarripa and he accepted the patient. Departure - Departure Time of Disposition: 11:30 Disposition: DC/Tfer to [facility] 02 Condition: Fair Clinical Impression: COVID-19, Pneumonia due to COVID-19 virus, Hypoxia - Discharge Information Referrals: Miya Hendricks MD [Primary Care Provider] - Forms: ED Department Discharge Sepsis Event Note (ED) - Evaluation Sepsis Screening Result: No Definite Risk - Focused Exam Vital Signs: Vital Signs Temp Pulse Resp BP Pulse Ox Pulse Ox 07/29/20 08:14 94 L 07/29/20 08:08 96.0 F L 84 25 H 131/106 H 90 L - My Orders Last 24 Hours: My Active Orders 07/29/20 08:11 Cardiac Monitoring [RC] . DIRECTED Oxygen Therapy [RC] PRN Peripheral IV Care [RC] . DIRECTED Chest 1V Frontal [CR] Stat Sodium Chloride 0.9% [Saline Flush] 10 ml FLUSH ASDIRECTED PRN Peripheral IV Insertion Adult [OM.PC] Stat 07/29/20 08:12 Blood Culture x2 Reflex Set [OM.PC] Stat 07/29/20 08:45 CULTURE BLOOD [BC] Stat 07/29/20 09:05 CULTURE BLOOD [BC] Stat 07/29/20 11:22 HEPATIC FUNCTION PANEL,HFP [CHEM] Stat 07/30/20 11:30 HEPATIC FUNCTION PANEL,HFP [CHEM] DAILY 07/31/20 11:30 HEPATIC FUNCTION PANEL,HFP [CHEM] DAILY 08/01/20 11:30 HEPATIC FUNCTION PANEL,HFP [CHEM] DAILY 08/02/20 11:30 HEPATIC FUNCTION PANEL,HFP [CHEM] DAILY - Assessment/Plan Last 24 Hours: My Active Orders 07/29/20 08:11 Cardiac Monitoring [RC] . DIRECTED Oxygen Therapy [RC] PRN Peripheral IV Care [RC] . DIRECTED Chest 1V Frontal [CR] Stat Sodium Chloride 0.9% [Saline Flush] 10 ml FLUSH ASDIRECTED PRN Peripheral IV Insertion Adult [OM.PC] Stat 07/29/20 08:12 Blood Culture x2 Reflex Set [OM.PC] Stat 07/29/20 08:45 CULTURE BLOOD [BC] Stat 07/29/20 09:05 CULTURE BLOOD [BC] Stat 07/29/20 11:22 HEPATIC FUNCTION PANEL,HFP [CHEM] Stat 07/30/20 11:30 HEPATIC FUNCTION PANEL,HFP [CHEM] DAILY 07/31/20 11:30 HEPATIC FUNCTION PANEL,HFP [CHEM] DAILY 08/01/20 11:30 HEPATIC FUNCTION PANEL,HFP [CHEM] DAILY 08/02/20 11:30 HEPATIC FUNCTION PANEL,HFP [CHEM] DAILY
[2020-07-29 10:42] LABS: CORONAVIRUS COVID-19 NAA POSITIVE (NEGATIVE)
[2020-07-29] MEDS ORDERED: REMDESIVIR 200 MG in Sodium Chloride 0.9% 250 ML IV ONE ×2 (11:22→12:00)
--- NOTE | 2020-07-29 13:14 | CR ---
Chest: Portable view of the chest was obtained. Comparison: No prior chest imaging is available. Findings: Heart and mediastinum: Heart size and mediastinum are normal. Lungs: Lungs are clear with no acute parenchymal change. No pleural thickening is seen. Osseous: Bony structures are grossly intact. Impression: 1. Nothing acute is appreciated on portable chest x-ray. Diagnostic code #1
== END 2020-07-29 12:38 ==
LOC: JD.ED 07:28
DX: U07.1 COVID-19 (principal); J12.89 Other viral pneumonia; R09.02 Hypoxemia; I10 Essential (primary) hypertension; E78.00 Pure hypercholesterolemia, unspecified; J45.909 Unspecified asthma, uncomplicated; K21.9 Gastro-esophageal reflux disease without esophagitis; F41.9 Anxiety disorder, unspecified; F32.9 Major depressive disorder, single episode, unspecified; E03.9 Hypothyroidism, unspecified; Z79.899 Other long term (current) drug therapy; Z88.0 Allergy status to penicillin
CPT/HCPCS: 0240U; 36415; 71045; 71045-26; 80053; 80076; 82728; 83605; 83615; 85025; 85379; 86140; 87040; 94762; 96365; 96375; 99284; 99285-25; J1100; J7050